=== PATIENT | female | born 1960 | race Caucasian/White ===

== ENCOUNTER → 2023-02-07 | Outpatient (CLI) | payer SELFPAY ==
--- NOTE | 2023-02-07 09:44 | US_ITS ---
STUDY: ULTRASOUND BREAST - RIGHT REASON FOR EXAM: Female, 62 years old. Right axillary lump. TECHNIQUE: Axial and longitudinal images of the RIGHT breast were performed with a high resolution ultrasound transducer. # OF IMAGES: 58 COMPARISON: None. FINDINGS: RIGHT Breast: The right axilla was examined with ultrasound. Prominent adipose tissue in the axilla. No abnormality is seen. IMPRESSION: No sonographic abnormality is seen. ASSESSMENT CATEGORY: BIRADS Category 1: Negative. A letter regarding these results will be sent to the patient by the facility within 30 days. Electronically Signed: Teddy Mendez MD at 9:06 EST , STUDY: ULTRASOUND BREAST - LEFT REASON FOR EXAM: Female, 62 years old. Fullness of the left axilla. TECHNIQUE: Axial and longitudinal images of the LEFT breast were performed with a high resolution ultrasound transducer. # OF IMAGES: 58 COMPARISON: None. FINDINGS: LEFT Breast: Imaging of the left axilla was performed. There is evidence of a adipose tissue in the axilla. Incidental note is made of 2 benign-appearing lymph nodes. The largest lymph node measures 1.8 cm x 1.8 cm x 1.2 cm. US/Breast Limited Unilateral IMPRESSION: 2 benign-appearing lymph nodes are seen in the left axilla. The larger measures 1.8 cm x 1.8 cm x 1.2 cm. ASSESSMENT CATEGORY: BIRADS Category 2: Benign. A letter regarding these results will be sent to the patient by the facility within 30 days. Electronically Signed: Teddy Mendez MD at 9:07 EST ,
--- NOTE | 2023-02-07 09:44 | US_ITS ---
STUDY: ULTRASOUND BREAST - RIGHT REASON FOR EXAM: Female, 62 years old. Right axillary lump. TECHNIQUE: Axial and longitudinal images of the RIGHT breast were performed with a high resolution ultrasound transducer. # OF IMAGES: 58 COMPARISON: None. FINDINGS: RIGHT Breast: The right axilla was examined with ultrasound. Prominent adipose tissue in the axilla. No abnormality is seen. IMPRESSION: No sonographic abnormality is seen. ASSESSMENT CATEGORY: BIRADS Category 1: Negative. A letter regarding these results will be sent to the patient by the facility within 30 days. Electronically Signed: Teddy Mendez MD at 9:06 EST , STUDY: ULTRASOUND BREAST - LEFT REASON FOR EXAM: Female, 62 years old. Fullness of the left axilla. TECHNIQUE: Axial and longitudinal images of the LEFT breast were performed with a high resolution ultrasound transducer. # OF IMAGES: 58 COMPARISON: None. FINDINGS: LEFT Breast: Imaging of the left axilla was performed. There is evidence of a adipose tissue in the axilla. Incidental note is made of 2 benign-appearing lymph nodes. The largest lymph node measures 1.8 cm x 1.8 cm x 1.2 cm. US/Breast Limited Unilateral IMPRESSION: 2 benign-appearing lymph nodes are seen in the left axilla. The larger measures 1.8 cm x 1.8 cm x 1.2 cm. ASSESSMENT CATEGORY: BIRADS Category 2: Benign. A letter regarding these results will be sent to the patient by the facility within 30 days. Electronically Signed: Teddy Mendez MD at 9:07 EST ,
== END | disposition home or self-care (01) ==
PROVIDERS: PCP Family Medicine; Referring Provider Surgery; Visit Provider Surgery
DX: R22.30 Localized swelling, mass and lump, unspecified upper limb (principal)
CPT/HCPCS: 76642

== ENCOUNTER → 2023-06-29 | Outpatient (CLI) | payer SELFPAY ==
[2023-06-29 17:50] LABS: ALB/GLOB Ratio 0.9 RATIO (0.9-2.4); AST(SGOT) 27 U/L (15-37); Alanine Aminotransfer ALT/SGPT 58 U/L (13-56); Albumin, Serum 3.6 g/dL (3.2-5.0); Alkaline Phosphatase 81 U/L (45-117); Anion Gap 6 (5-15); BUN 21 mg/dL (7-18); BUN/Creat Ratio 27.4 RATIO (10-20); Calcium,Total 9.4 mg/dL (8.5-10.1); Chloride 107 mmol/L (98-107); Creatinine, Serum 0.77 mg/dL (0.55-1.02); EST Glomerular Filtration Rate 81 mL/min (>60); Est Glom Filt Rate - Afr Amer 99 mL/min (>60); Globulin 3.9 g/dL (2.2-4.2); Glucose 130 mg/dL (74-106); Potassium 3.7 mmol/L (3.5-5.1); Protein, Total 7.5 g/dL (6.4-8.2); Rheumatoid Factor < 10.0 IU/mL (<15); Sodium Level 138 mmol/L (136-145)
[2023-06-29 18:04] LABS: Erythrocyte Sedimentation Rate 11 mm/hr (0-30)
[2023-06-29 18:06] LABS: Absolute Lymphocyte Count 1.57 X10^3/uL (0.83-4.51); Basophil# 0.04 X10^3/uL; Basophil% 0.4 % (0-1); Eosinophil# 0.18 X10^3/uL; Eosinophils% 1.9 % (0-5); Hemoglobin 13.2 g/dL (12.0-15.0); Lymphocyte # 1.57 X10^3/ul (0.83-4.51); Lymphocyte % 16.8 % (19-41); Mean Corp Hgb Conc 32.2 g/dL (32-36); Mean Corpuscular Hgb 28.7 pg (27.0-32.0); Mean Corpuscular Volume 89.1 fL (81-99); Mean Platelet Vol. 10.6 fl (6.2-12.0); Monocyte# 0.56 X10^3/uL; NRBC Flagged by Analyzer 0 % (0-5); Neutrophil # 6.98 X10^3/uL (2.7-7.7); Neutrophil % 74.6 % (47-70); Platelet Count 574 K/mm3 (150-450); RBC Distribution Width CV 13.8 % (11.6-14.6); RBC Distribution Width SD 44.8 fl (35.1-43.9); White Blood Count 9.4 K/mm3 (4.4-11.0)
[2023-06-29 18:28] LABS: Hepatitis B Surface Antibody Non-Reactive; Hepatitis C Antibody Non-Reactive (Nonreactive)
[2023-07-02 12:08] LABS: CCP IgG Antibodies 6 units (0-19)
[2023-07-03 09:57] LABS: Hepatitis B Surface Antigen Non-Reactive (Nonreactive)
== END | disposition home or self-care (01) ==
LOC: MTLAB 14:40
PROVIDERS: PCP Family Medicine; Referring Provider Internal Medicine Rheumatology; Visit Provider Internal Medicine Rheumatology
DX: M06.4 Inflammatory polyarthropathy (principal); M79.7 Fibromyalgia
CPT/HCPCS: 36415; 80053; 85025; 85652; 86140; 86200; 86431; 86706; 86803; 87340